=== PATIENT | female | born 2000 | race American Indian/Alaskan Native ===

== ENCOUNTER 2021-12-31 01:32 | Emergency (ER) | payer OTHER ==
[2021-12-31] MEDS ORDERED: Ketorolac 15 MG/ML SDV IM ONE (02:39)
== END 2021-12-31 03:54 | disposition home or self-care (01) ==
LOC: JD.ED 01:32
DX: J03.90 Acute tonsillitis, unspecified (principal); F17.210 Nicotine dependence, cigarettes, uncomplicated
CPT/HCPCS: 36415; 86308; 87651; 96372; 99283; J1885; 99282